=== PATIENT | female | born 1980 | race Native Hawaiian/Other Pacific Islander ===

== ENCOUNTER 2017-11-27 15:32 | Emergency (ER) | payer MEDICARE, MEDICAID ==
[~2017-11-27] VITALS: Ht 162.6 cm; Wt 44.5 kg
[2017-11-27 15:46] VITALS: BP 142/96; PULSE 92; RESP 16; TEMP 97.7; O2SAT 100
[2017-11-27] MEDS ORDERED: SODIUM CHLOR 0.9% 1000 ML INJ 1,000 ML IV SCH (18:42)
--- NOTE | 2017-11-27 18:44 | PD ---
HPI Chief Complaint: Anxiety Time Seen by Provider: 18:42 Travel History International Travel<30 days: No Contact w/Intl Traveler<30days: No Traveled to known affect area: No History of Present Illness HPI 37-year-old female with history of anxiety cyclic vomiting, presents emergency department for evaluation of this. Patient states she has severe anxiety. She is sticking her fingers down her throat making her vomit. She states she has been vomiting all day. Denies suicidal homicidal ideations but states she is freaking out. Denies any chest or tightness. No difficulty breathing. No abdominal pain. Patient's other symptoms to report. PFSH Past Medical History Medical History: Denies Significant Hx Arthritis: No Asthma: No Autoimmune Disease: No Bipolar Disorder: Yes Anxiety: Yes Depression: Yes Heart Rhythm Problems: No Cancer: No Cardiovascular Problems: Yes (Rapid heart beat) High Cholesterol: No Chemotherapy: No Chest Pain: No Congestive Heart Failure: No COPD: No Cerebrovascular Accident: No Diabetes: No Diminished Hearing: No Endocrine: No GERD: No Genitourinary: No Headaches: Yes Hiatal Hernia: No Immune Disorder: No Kidney Stones: No Musculoskeletal: Yes (right wrist fracture) Neurologic: No Psychiatric: Yes Reproductive: No Respiratory: No Migraines: No Radiation Therapy: No Renal Failure: No Schizophrenia: No Seizures: Yes (3 total, last was over a year ago) Sickle Cell Disease: No Sleep Apnea: No Thyroid Disease: No Ulcer: No ?: Unknown : 0 Para: 0 Miscarriage: 0 : 0 Past Surgical History Abdominal Surgery: No AICD: No Arteriovenous Shunt: No Cardiac Surgery: No Cholecystectomy: Yes Ear Surgery: No Endocrine Surgery: No Eye Surgery: No Genitourinary Surgery: No Gynecologic Surgery: No Insulin Pump: No Joint Replacement: No Oral Surgery: No Pacemaker: No Thoracic Surgery: No Social History Alcohol Use: Yes (OCC.) Tobacco Use: Yes (2ppd) Substance Use: Yes (MARIJUANA) Allergies-Medications (Allergen,Severity, Reaction): Coded Allergies: ibuprofen (Unverified Allergy, Intermediate, 11/27/17) Reported Meds & Prescriptions Reported Meds & Active Scripts Active No Active Prescriptions or Reported Medications Review of Systems Except as stated in HPI: all other systems reviewed are Neg Physical Exam Narrative GENERAL: Thin female patient, panicking but appears nontoxic. SKIN: Focused skin assessment warm/dry. HEAD: Atraumatic. Normocephalic. EYES: Pupils equal and round. No scleral icterus. No injection or drainage. ENT: No nasal bleeding or discharge. Mucous membranes pink and moist. NECK: Trachea midline. No JVD. CARDIOVASCULAR: Elevated rate and rhythm. No murmur appreciated. RESPIRATORY: No accessory muscle use. Clear to auscultation. Breath sounds equal bilaterally. GASTROINTESTINAL: Abdomen soft, non-tender, nondistended. Hepatic and splenic margins not palpable. MUSCULOSKELETAL: No obvious deformities. No clubbing. No cyanosis. No edema. NEUROLOGICAL: Awake and alert. No obvious cranial nerve deficits. Motor grossly within normal limits. Normal speech. Data Data Last Documented VS Vital Signs Date Time Temp Pulse Resp B/P (MAP) Pulse Ox O2 Delivery O2 Flow Rate FiO2 11/27/17 19:10 107 16 158/99 (118) 100 Room Air 11/27/17 15:46 97.7 Orders Orders Complete Blood Count With Diff (11/27/17 18:42) Comprehensive Metabolic Panel (11/27/17 18:42) Lipase (11/27/17 18:42) Urinalysis - C+S If Indicated (11/27/17 18:42) Iv Access Insert/Monitor (11/27/17 18:42) Ecg Monitoring (11/27/17 18:42) Oximetry (11/27/17 18:42) Sodium Chlor 0.9% 1000 Ml Inj (Ns 1000 M (11/27/17 18:42) Sodium Chloride 0.9% Flush (Ns Flush) (11/27/17 18:45) Ed Urine Pregnancytest Poc (11/27/17 18:42) Lorazepam Inj (Ativan Inj) (11/27/17 18:45) Metoclopramide Inj (Reglan Inj) (11/27/17 18:45) Diphenhydramine Inj (Benadryl Inj) (11/27/17 18:45) Drug Screen, Random Urine (11/27/17 18:44) Salicylates (Aspirin) (11/27/17 18:44) Tylenol (Acetaminophen) (11/27/17 18:42) Alcohol (Ethanol) (11/27/17 18:42) Thyroid Stimulating Hormone (11/27/17 18:42) Ed Discharge Order (11/27/17 21:48) Prochlorperazine Inj (Compazine Inj) (11/27/17 22:00) Diphenhydramine Inj (Benadryl Inj) (11/27/17 22:00) Labs Laboratory Tests Test 11/27/17 18:55 11/27/17 20:45 White Blood Count 19.0 TH/MM3 Red Blood Count 3.89 MIL/MM3 Hemoglobin 13.3 GM/DL Hematocrit 36.5 % Mean Corpuscular Volume 93.7 FL Mean Corpuscular Hemoglobin 34.3 PG Mean Corpuscular Hemoglobin Concent 36.6 % Red Cell Distribution Width 13.2 % Platelet Count 266 TH/MM3 Mean Platelet Volume 7.6 FL Neutrophils (%) (Auto) 91.8 % Lymphocytes (%) (Auto) 4.6 % Monocytes (%) (Auto) 3.4 % Eosinophils (%) (Auto) 0.0 % Basophils (%) (Auto) 0.2 % Neutrophils # (Auto) 17.4 TH/MM3 Lymphocytes # (Auto) 0.9 TH/MM3 Monocytes # (Auto) 0.6 TH/MM3 Eosinophils # (Auto) 0.0 TH/MM3 Basophils # (Auto) 0.0 TH/MM3 CBC Comment AUTO DIFF Differential Comment AUTO DIFF CONFIRMED Platelet Estimate NORMAL Platelet Morphology Comment NORMAL Red Cell Morphology Comment NORMAL Blood Urea Nitrogen 12 MG/DL Creatinine 0.67 MG/DL Random Glucose 121 MG/DL Total Protein 7.4 GM/DL Albumin 4.3 GM/DL Calcium Level 9.1 MG/DL Alkaline Phosphatase 61 U/L Aspartate Amino Transf (AST/SGOT) 22 U/L Alanine Aminotransferase (ALT/SGPT) 22 U/L Total Bilirubin 0.7 MG/DL Sodium Level 139 MEQ/L Potassium Level 3.5 MEQ/L Chloride Level 106 MEQ/L Carbon Dioxide Level 22.1 MEQ/L Anion Gap 11 MEQ/L Estimat Glomerular Filtration Rate 98 ML/MIN Lipase 51 U/L Thyroid Stimulating Hormone 3rd Gen 1.240 uIU/ML Salicylates Level LESS THAN 1.7 MG/DL Acetaminophen Level LESS THAN 2.0 MCG/ML Ethyl Alcohol Level LESS THAN 3 MG/DL Urine Color LIGHT-YELLOW Urine Turbidity CLEAR Urine pH 8.5 Urine Specific [place] 1.012 Urine Protein NEG mg/dL Urine Glucose (UA) NEG mg/dL Urine Ketones 10 mg/dL Urine Occult Blood NEG Urine Nitrite NEG Urine Bilirubin NEG Urine Urobilinogen LESS THAN 2.0 MG/DL Urine Leukocyte Esterase NEG Urine RBC LESS THAN 1 /hpf Urine WBC LESS THAN 1 /hpf Urine Squamous Epithelial Cells 1 /hpf Urine Mucus FEW /lpf Microscopic Urinalysis Comment CULT NOT INDICATED Urine Opiates Screen NEG Urine Barbiturates Screen NEG Urine Amphetamines Screen NEG Urine Benzodiazepines Screen NEG Urine Cocaine Screen NEG Urine Cannabinoids Screen POS MDM Medical Decision Making Medical Screen Exam Complete: Yes Emergency Medical Condition: Yes Medical Record Reviewed: Yes Differential Diagnosis Anxiety versus panic attack versus mood disorder versus personality disorder Narrative Course 37-year-old female presents to emergency department with a panic attack; history of anxiety and cyclic vomiting. Patient is sticking her fingers in her throat, causing her she dry heaves here in emergency department. She is given Ativan, Reglan, and Benadryl. Upon reassessment, patient is sleeping calmly in the bed. She is arousable. She states that she feels much better. She will like to speak with psychiatry. Lab work does have a leukocytosis of 19, however patient has been vomiting throughout the day, most possibly a stress response. Lab work is otherwise without acute concern. Patient is medically cleared to undergo psychiatric screening for further evaluation and disposition. Mental health screening discussed with the patient. Psychiatric screen ordered. Laboratory Tests Test 11/27/17 18:55 White Blood Count 19.0 TH/MM3 Red Blood Count 3.89 MIL/MM3 Hemoglobin 13.3 GM/DL Hematocrit 36.5 % Mean Corpuscular Volume 93.7 FL Mean Corpuscular Hemoglobin 34.3 PG Mean Corpuscular Hemoglobin Concent 36.6 % Red Cell Distribution Width 13.2 % Platelet Count 266 TH/MM3 Mean Platelet Volume 7.6 FL Neutrophils (%) (Auto) 91.8 % Lymphocytes (%) (Auto) 4.6 % Monocytes (%) (Auto) 3.4 % Eosinophils (%) (Auto) 0.0 % Basophils (%) (Auto) 0.2 % Neutrophils # (Auto) 17.4 TH/MM3 Lymphocytes # (Auto) 0.9 TH/MM3 Monocytes # (Auto) 0.6 TH/MM3 Eosinophils # (Auto) 0.0 TH/MM3 Basophils # (Auto) 0.0 TH/MM3 CBC Comment AUTO DIFF Differential Comment AUTO DIFF CONFIRMED Platelet Estimate NORMAL Platelet Morphology Comment NORMAL Red Cell Morphology Comment NORMAL Blood Urea Nitrogen 12 MG/DL Creatinine 0.67 MG/DL Random Glucose 121 MG/DL Total Protein 7.4 GM/DL Albumin 4.3 GM/DL Calcium Level 9.1 MG/DL Alkaline Phosphatase 61 U/L Aspartate Amino Transf (AST/SGOT) 22 U/L Alanine Aminotransferase (ALT/SGPT) 22 U/L Total Bilirubin 0.7 MG/DL Sodium Level 139 MEQ/L Potassium Level 3.5 MEQ/L Chloride Level 106 MEQ/L Carbon Dioxide Level 22.1 MEQ/L Anion Gap 11 MEQ/L Estimat Glomerular Filtration Rate 98 ML/MIN Lipase 51 U/L Thyroid Stimulating Hormone 3rd Gen 1.240 uIU/ML Salicylates Level LESS THAN 1.7 MG/DL Acetaminophen Level LESS THAN 2.0 MCG/ML Ethyl Alcohol Level LESS THAN 3 MG/DL 2150 patient states that she does not want to wait for psychiatric screen. She denies suicidal homicidal ideations.) Appropriate. She has not vomited since been in the emergency department. She is calm. She'll be discharged at this time. Diagnosis Primary Impression: Anxiety Additional Impressions: Self induced vomiting Leukocytosis Referrals: [facility] (Out patient) Primary Care Physician Patient Instructions: Anxiety (ED), General Instructions Additional Instructions: Follow-up with a primary care provider Return immediately with any acute worsening of symptoms Med/Other Pt SpecificInfo: Prescription(s) given Scripts Promethazine (Phenergan) 25 Mg Tablet 25 MG PO Q6H Y for NAUSEA OR VOMITING, #20 TAB 0 Refills Prov: Maru Jimenez 11/27/17 Disposition: 01 DISCHARGE HOME Condition: Stable Maru Jimenez Nov 27, 2017 18:44
[2017-11-27] MEDS ORDERED: LORazepam 2 MG/ML VIAL IV PUSH ONE (18:45)
[2017-11-27] MEDS ORDERED: SODIUM CHLORIDE 0.9% FLUSH 10 ML FLUSH IV FLUSH PRN (18:45)
[2017-11-27] MEDS ORDERED: METOCLOPRAMIDE HCL 10 MG/2 ML VIAL IV PUSH ONE (18:45)
[2017-11-27] MEDS ORDERED: diphenhydrAMINE HCL 50 MG/ML VIAL IV PUSH ONE ×2 (18:45→22:00)
[2017-11-27 19:08] VITALS: O2SAT 100
[2017-11-27 19:10] VITALS: BP 158/99; PULSE 107; RESP 16; O2SAT 100
[2017-11-27 19:20] LABS: AUTOMATED NEUTROPHIL # 17.4 TH/MM3 (1.8-7.7); BASOPHIL % 0.2 % (0.0-2.0); HEMATOCRIT 36.5 % (35.0-46.0); HEMOGLOBIN 13.3 GM/DL (11.6-15.3); LYMPH % 4.6 % (9.0-44.0); LYMPHOCYTE # 0.9 TH/MM3 (1.0-4.8); MEAN CELL VOLUME 93.7 FL (80.0-100.0); MEAN CORPUSCULAR HEMOGLOBIN 34.3 PG (27.0-34.0); MEAN PLATELET VOLUME 7.6 FL (7.0-11.0); MONO % 3.4 % (0.0-8.0); MONOCYTE # 0.6 TH/MM3 (0-0.9); NEUT % 91.8 % (16.0-70.0); PLATELET COUNT 266 TH/MM3 (150-450); RED BLOOD COUNT 3.89 MIL/MM3 (4.00-5.30); RED CELL DISTRIBUTION WIDTH 13.2 % (11.6-17.2)
[2017-11-27 19:28] LABS: MEAN CORPUSCULAR HGB CONC 36.6 % (32.0-36.0)
[2017-11-27 20:02] LABS: ALT (GPT) 22 U/L (10-53)
[2017-11-27 20:12] LABS: ACETAMINOPHEN LESS THAN 2.0 MCG/ML (10.0-30.0); ALKALINE PHOSPHATASE 61 U/L (45-117); TOTAL BILIRUBIN ADULT 0.7 MG/DL (0.2-1.0); TOTAL PROTEIN 7.4 GM/DL (6.4-8.2)
[2017-11-27 20:21] LABS: ALBUMIN 4.3 GM/DL (3.4-5.0); AST (GOT) 22 U/L (15-37); BICARBONATE 22.1 MEQ/L (21.0-32.0); BLOOD UREA NITROGEN 12 MG/DL (7-18); CALCIUM 9.1 MG/DL (8.5-10.1); CHLORIDE 106 MEQ/L (98-107); CREATININE 0.67 MG/DL (0.50-1.00); GLOMERULAR FILTRATION RATE 98 ML/MIN (>89); GLUCOSE,RANDOM 121 MG/DL (74-106); SODIUM (NA) 139 MEQ/L (136-145)
[2017-11-27 21:15] LABS: BILIRUBIN, URINE NEG (NEG); BLOOD, URINE NEG (NEG); GLUCOSE,URINE NEG (NEG); KETONE, URINE 10 mg/dL (NEG); MUCUS URINE FEW /lpf (OCC); NITRITE,URINE NEG (NEG); PH, URINE 8.5 (5.0-8.5); SQUAMOUS EPITHELIAL CELL URINE 1 /hpf (0-5); URINE COLOR LIGHT-YELLOW (YELLW/STRAW); URINE LEUKOCYTE ESTERASE NEG (NEG)
[2017-11-27] MEDS ORDERED: PROM25TA10 PO (21:51)
[2017-11-27] MEDS ORDERED: PROCHLORPERAZINE INJ 10 MG/2 ML VIAL IV PUSH ONE (22:00)
== END 2017-11-27 22:05 | disposition home or self-care (01) ==
LOC: NEPC 15:32
DX: F41.9 Anxiety disorder, unspecified (principal); R11.10 Vomiting, unspecified; F12.90 Cannabis use, unspecified, uncomplicated; D72.829 Elevated white blood cell count, unspecified; Z72.0 Tobacco use
CPT/HCPCS: 80053; 80307; 81001; 83690; 84443; 85025; 96361; 96374; 96375; 96376; 99284; J0780; J1200; J2060; J2765; J7030